=== PATIENT | female | born 1960 | race African-American/Black ===

== ENCOUNTER 2020-08-05 19:31 | Emergency (ER) | payer BC, SELFPAY ==
[2020-08-05 20:04] VITALS: BP 145/61; PULSE 95; RESP 16; TEMP 36; O2SAT 97; BMI 25.4
--- NOTE | 2020-08-05 20:47 | PC.NURSE ---
PT WAS TOLD SHE HAD TO REMAIN IN HER AND THE PROVIDER WOULD BE INTO SEE HERE SOON THEY ARE AVAILABLE. PT SAID SHE WAS GOING TO LEAVE. PT WAS TOLD IT WOULD NOT BE MUCH LONG. PT STATED SHE WANTED TO LEAVE, I INFORMED HER IT SHOULD NOT BE MUCH, BUT PT LEFT ANYWAY.
== END 2020-08-05 20:59 | disposition left against medical advice (07) ==
PROVIDERS: Emergency Provider Emergency Medicine
DX: T23.002A Burn of unspecified degree of left hand, unspecified site, initial encounter (principal); T23.001A Burn of unspecified degree of right hand, unspecified site, initial encounter; X10.2XXA Contact with fats and cooking oils, initial encounter; Y93.G3 Activity, cooking and baking; Y92.010 Kitchen of single-family (private) house as the place of occurrence of the external cause; Y99.9 Unspecified external cause status
CPT/HCPCS: 99282